=== PATIENT | male | born 1995 | race Hispanic/Latino ===

== ENCOUNTER 2017-05-16 23:54 | Emergency (ER) | payer MEDICAID, OTHER ==
[2017-05-17] MEDS ORDERED: PREDNISONE 20 MG TABLET ONE (00:33)
[2017-05-17] MEDS ORDERED: KETOROLAC TROMETHAMINE 60 MG/2 ML VIAL ONE (00:33)
== END 2017-05-17 00:48 | disposition home or self-care (01) ==
LOC: EDH 23:54
DX: S59.801A Other specified injuries of right elbow, initial encounter (principal); F31.9 Bipolar disorder, unspecified; Z79.899 Other long term (current) drug therapy; W22.8XXA Striking against or struck by other objects, initial encounter; Y93.89 Activity, other specified; Y92.098 Other place in other non-institutional residence as the place of occurrence of the external cause; Y99.8 Other external cause status
CPT/HCPCS: 96372; 99283; J1885